=== PATIENT | male | born 1990 | race Caucasian/White ===

== ENCOUNTER 2019-06-18 21:47 | Emergency (ER) | payer SELFPAY ==
[2019-06-18] MEDS ORDERED: FENTANYL CITR 100 MCG/2 ML ONE (22:25)
[2019-06-18 22:34] LABS: Absolute Lymphocytes (CBC) 1.9 K/uL (0.7-4.9); Basophils % 0.3 % (0-1.3); Lymphocytes % 22.5 % (15.3-44.8); MPV 8.9 fL (7.6-11.3); RBC Red Blood Cell Count 4.82 M/uL (4.33-5.43)
[2019-06-18 23:00] LABS: Potassium 4.4 mmol/L (3.5-5.1)
[2019-06-19] MEDS ORDERED: CLINDAMYCIN 600MG/D5W 600 MG/50 ML BAG IV ONE (01:18)
[2019-06-19] MEDS ORDERED: FENTANYL CITR 100 MCG/2 ML ONE (01:18)
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
== END 2019-06-19 02:20 | disposition home or self-care (01) ==
LOC: ER 21:47
DX: S40.012A Contusion of left shoulder, initial encounter (principal); S40.022A Contusion of left upper arm, initial encounter; S50.812A Abrasion of left forearm, initial encounter; S70.312A Abrasion, left thigh, initial encounter; V28.4XXA Motorcycle driver injured in noncollision transport accident in traffic accident, initial encounter; F17.210 Nicotine dependence, cigarettes, uncomplicated
CPT/HCPCS: 36415; 70450; 71250; 72125; 80048; 85025; 86850; 86900; 86901; 96365; 96375; 99284; J3010